=== PATIENT | female | born 1955 | race Caucasian/White ===

== ENCOUNTER 2017-12-22 16:41 | Inpatient (IN) | payer BC, OTHER ==
[~2017-12-22] VITALS: Ht 162.6 cm; Wt 64.5 kg
[2017-12-22 17:45] VITALS: BP 115/66
[2017-12-22] MEDS ORDERED: PLEASE ENTER HEIGHT AND WEIGHT MC SCH (19:30)
[2017-12-22] MEDS ORDERED: TEMAZEPAM 15 MG CAPSULE PO PRN (19:30)
[2017-12-22] MEDS ORDERED: PLEASE ENTER ALLERGIES MC SCH (19:30)
[2017-12-22] MEDS ORDERED: ONDANSETRON 2MG/ML, 2ML IVPush PRN (19:30)
[2017-12-22] MEDS ORDERED: ENALAPRILAT 1.25 MG/ML, 2ML IVPush PRN (19:30)
[2017-12-22] MEDS ORDERED: DOCUSATE 100 MG CAPSULE PO PRN (19:30)
[2017-12-22] MEDS ORDERED: ZOLM5TAB8 PO (20:28)
[2017-12-22 20:37] VITALS: BP 114/73
[2017-12-22] MEDS: DEXAMETHASONE 4 MG/ML, 1ML IVPush SCH (22:35)
[2017-12-23 00:58] VITALS: BP 116/71
[2017-12-23] MEDS: DEXAMETHASONE 4 MG/ML, 1ML IVPush SCH ×4 (04:35→22:18)
[2017-12-23 07:16] VITALS: BP 108/69
[2017-12-23] MEDS: HYDROcodone/APAP 5/325 TABLET PO PRN ×3 (07:38→20:23)
[2017-12-23 08:16] LABS: ANION GAP 11 mmol/L (5-15); CALCIUM 8.5 mg/dL (8.5-10.1); CHLORIDE 104 mmol/L (98-107); CREATININE 0.69 mg/dL (0.55-1.02)
[2017-12-23 08:18] LABS: MEAN CORPUSCULAR HGB CONC 33.8 g/dL (32.4-35.8); MEAN PLATELET VOLUME 7.2 fL (7.4-10.4); PLATELET COUNT 502 x10^3/uL (130-400); RED BLOOD COUNT 4.39 x10^6/uL (3.82-5.3); RED CELL DISTRIBUTION WIDTH 17.9 % (9.6-15.2)
[2017-12-23 09:01] LABS: MD YES
[2017-12-23 09:04] LABS: BAND#(MANUAL) 0.14 x10^3/uL; BANDS%(MANUAL) 1 % (0-7); LYMPH#(MANUAL) 3.08 x10^3/uL (1-3.4); LYMPHS% (MANUAL) 22 % (22-44); METAMYELOCYTES# (MANUAL) 0.14 x10^3/uL (0-0); METAMYELOCYTES% (MANUAL) 1 % (0-1); MONOS#(MANUAL) 0.28 x10^3/uL (0.3-2.7); MONOS% (MANUAL) 2 % (2-9); SEG#(MANUAL) 10.36 x10^3/uL (1.8-6.8); SEGS% (MANUAL) 74 % (42-75)
[2017-12-23 09:05] LABS: <PLATELET ESTIMATE> INCREASED; ANISOCYTOSIS 1+; LARGE PLATELETS 1+; POLYCHROMASIA 1+
[2017-12-23] MEDS ORDERED: GADOBUTROL 7.5 MMOL/7.5 ML PFS ONE ×2 (12:32→17:39)
[2017-12-23 13:44] VITALS: BP 107/70
[2017-12-23 20:37] VITALS: BP 111/67
[2017-12-24 01:01] VITALS: BP 119/72
[2017-12-24] MEDS: DEXAMETHASONE 4 MG/ML, 1ML IVPush SCH ×4 (04:20→22:19)
[2017-12-24 07:21] VITALS: BP 127/66
[2017-12-24] MEDS: HYDROcodone/APAP 5/325 TABLET PO PRN ×3 (08:58→20:26)
[2017-12-24 13:52] VITALS: BP 110/70
[2017-12-24 20:00] VITALS: BP 111/72
[2017-12-25 02:00] VITALS: BP 104/64
[2017-12-25] MEDS: DEXAMETHASONE 4 MG/ML, 1ML IVPush SCH ×4 (04:49→22:43)
[2017-12-25] MEDS: HYDROcodone/APAP 5/325 TABLET PO PRN ×4 (04:49→21:29)
[2017-12-25 09:10] VITALS: BP 107/67
[2017-12-25 13:55] VITALS: BP 98/62
[2017-12-25] MEDS ORDERED: CEFDINIR 125 MG/5 ML, ORAL SUSP ONE (18:00)
[2017-12-25 19:19] VITALS: BP 113/73
[2017-12-26 01:48] VITALS: BP 106/66
[2017-12-26] MEDS: DEXAMETHASONE 4 MG/ML, 1ML IVPush SCH ×4 (04:40→22:32)
[2017-12-26] MEDS ORDERED: NALOXONE 1 MG/ML, 2ML ONE (07:42)
[2017-12-26] MEDS ORDERED: FENTANYL PF 100 MCG/2ML ONE ×2 (07:42)
[2017-12-26] MEDS ORDERED: FLUMAZENIL 0.1 MG/1 ML, 5ML ONE (07:42)
[2017-12-26] MEDS ORDERED: MIDAZOLAM 1 MG/ML, 2ML ONE ×2 (07:42)
[2017-12-26] MEDS ORDERED: CEFAZOLIN PMX 1GM/50ML 50 ML ONE (08:02)
[2017-12-26] MEDS ORDERED: LIDOCAINE 1%, 20ML ONE (08:06)
[2017-12-26 08:16] VITALS: BP 119/73
[2017-12-26 13:50] VITALS: BP 102/67
[2017-12-26] MEDS: HYDROcodone/APAP 5/325 TABLET PO PRN ×3 (14:57→23:29)
[2017-12-26 19:26] VITALS: BP 98/64
[2017-12-27 03:00] VITALS: BP 108/72
[2017-12-27] MEDS: HYDROcodone/APAP 5/325 TABLET PO PRN ×4 (04:37→20:20)
[2017-12-27] MEDS: DEXAMETHASONE 4 MG/ML, 1ML IVPush SCH ×4 (04:37→22:36)
[2017-12-27 08:20] VITALS: BP 117/73
[2017-12-27 14:52] VITALS: BP 108/63
[2017-12-27 20:00] VITALS: BP 107/61
[2017-12-28] MEDS: HYDROcodone/APAP 5/325 TABLET PO PRN ×6 (00:40→22:13)
[2017-12-28 04:16] VITALS: BP 111/68
[2017-12-28] MEDS: DEXAMETHASONE 4 MG/ML, 1ML IVPush SCH ×4 (04:44→22:13)
[2017-12-28 08:09] VITALS: BP 110/61
[2017-12-28 16:45] VITALS: BP 111/66
[2017-12-28 19:49] VITALS: BP 100/59
[2017-12-29 02:11] VITALS: BP 108/70
[2017-12-29] MEDS: DEXAMETHASONE 4 MG/ML, 1ML IVPush SCH ×4 (05:39→22:29)
[2017-12-29] MEDS: HYDROcodone/APAP 5/325 TABLET PO PRN ×4 (05:39→22:33)
[2017-12-29 07:15] LABS: ALANINE AMINOTRANSFERASE 27 U/L (12-78); ALBUMIN 2.2 g/dL (3.4-5.0); ANION GAP 8 mmol/L (5-15); CALCIUM 8.1 mg/dL (8.5-10.1); CHLORIDE 102 mmol/L (98-107); CREATININE 0.55 mg/dL (0.55-1.02)
[2017-12-29 07:17] LABS: ALKALINE PHOSPHATASE 402 U/L (45-117); BILIRUBIN,TOTAL 0.5 mg/dL (0.2-1.0); TOTAL PROTEIN 5.8 g/dL (6.4-8.2)
[2017-12-29 07:35] LABS: MD YES; MEAN CORPUSCULAR HEMOGLOBIN 26.9 pg (27.0-34.8); MEAN CORPUSCULAR HGB CONC 33.5 g/dL (32.4-35.8); MEAN CORPUSCULAR VOLUME 80.2 fL (80-100); MEAN PLATELET VOLUME 7.2 fL (7.4-10.4); PLATELET COUNT 458 x10^3/uL (130-400); RED BLOOD COUNT 4.18 x10^6/uL (3.82-5.3)
[2017-12-29 07:36] LABS: BAND#(MANUAL) 0.29 x10^3/uL; BANDS%(MANUAL) 2 % (0-7); LYMPH#(MANUAL) 0.88 x10^3/uL (1-3.4); LYMPHS% (MANUAL) 6 % (22-44); METAMYELOCYTES# (MANUAL) 0.15 x10^3/uL (0-0); METAMYELOCYTES% (MANUAL) 1 % (0-1); MONOS#(MANUAL) 0.58 x10^3/uL (0.3-2.7); MONOS% (MANUAL) 4 % (2-9); NRBC % (MANUAL) 2 % (0-1); SEGS% (MANUAL) 87 % (42-75)
[2017-12-29 07:37] LABS: ANISOCYTOSIS 1+; POLYCHROMASIA 1+
[2017-12-29 07:38] LABS: <PLATELET ESTIMATE> INCREASED; <PLT MORPHOLOGY> NORMAL PLT MORPH; HOWELL-JOLLY BODIES 1+
[2017-12-29 08:30] VITALS: BP 101/64
[2017-12-29 14:00] VITALS: BP 104/59
[2017-12-29 17:40] LABS: GLUCOSE, CSF 78 mg/dL (40-80)
[2017-12-29 17:50] LABS: TOTAL PROTEIN,CSF 794 mg/dL (15-45)
[2017-12-29 18:33] VITALS: BP 98/60
[2017-12-30 03:58] VITALS: BP 107/68
[2017-12-30] MEDS: DEXAMETHASONE 4 MG/ML, 1ML IVPush SCH ×4 (04:30→22:23)
[2017-12-30] MEDS: HYDROcodone/APAP 5/325 TABLET PO PRN ×4 (04:35→22:23)
[2017-12-30 08:30] VITALS: BP 106/70
[2017-12-30 14:30] VITALS: BP 102/66
[2017-12-30 19:46] VITALS: BP 97/64
[2017-12-31] MEDS: DEXAMETHASONE 4 MG/ML, 1ML IVPush SCH ×4 (04:29→22:27)
[2017-12-31] MEDS: HYDROcodone/APAP 5/325 TABLET PO PRN ×4 (04:34→22:31)
[2017-12-31 05:18] VITALS: BP_SYST 85; BP_SYST 89; BP_SYST 93; BP_DIAS 54; BP_DIAS 56; BP_DIAS 59
[2017-12-31 08:30] VITALS: BP 116/69
[2017-12-31 14:21] VITALS: BP 108/69
[2017-12-31 19:19] VITALS: BP 99/62
[2018-01-01 03:34] VITALS: BP 99/63
[2018-01-01] MEDS: DEXAMETHASONE 4 MG/ML, 1ML IVPush SCH ×4 (04:27→22:11)
[2018-01-01 07:05] VITALS: BP 109/69
[2018-01-01] MEDS: HYDROcodone/APAP 5/325 TABLET PO PRN ×3 (10:02→22:39)
[2018-01-01 13:08] VITALS: BP 101/64
[2018-01-01 20:21] VITALS: BP 104/65
[2018-01-02 03:48] VITALS: BP 99/62
[2018-01-02] MEDS: HYDROcodone/APAP 5/325 TABLET PO PRN ×3 (04:07→13:53)
[2018-01-02] MEDS: DEXAMETHASONE 4 MG/ML, 1ML IVPush SCH ×2 (04:07→10:00)
[2018-01-02 07:30] VITALS: BP 120/75
[2018-01-02 14:08] VITALS: BP 100/63
[2018-01-02] MEDS ORDERED: HYDR-3240 PO (16:28)
[2018-01-02] MEDS ORDERED: DEXA4TAB PO (16:28)
== END 2018-01-02 18:57 | disposition home or self-care (01) | DRG 579 ==
LOC: 3NW 17:40
PROVIDERS: ADMIT Internal Medicine; ATTEND Internal Medicine
PROC: 0JH63WZ Insertion of Totally Implantable Vascular Access Device into Chest Subcutaneous Tissue and Fascia, Percutaneous Approach (ICD-10-PCS; 2017-12-26)
PROC: 0QB23ZX Excision of Right Pelvic Bone, Percutaneous Approach, Diagnostic (ICD-10-PCS; 2017-12-26)
PROC: 05HM33Z Insertion of Infusion Device into Right Internal Jugular Vein, Percutaneous Approach (ICD-10-PCS; 2017-12-26)
PROC: B5131ZA Fluoroscopy of Right Jugular Veins using Low Osmolar Contrast, Guidance (ICD-10-PCS; 2017-12-26)
PROC: D00 Radiation Therapy, Central and Peripheral Nervous System, Beam Radiation (ICD-10-PCS; 2017-12-27)
PROC: 009U3ZX Drainage of Spinal Canal, Percutaneous Approach, Diagnostic (ICD-10-PCS; principal; 2017-12-29)
PROC: B01B1ZZ Fluoroscopy of Spinal Cord using Low Osmolar Contrast (ICD-10-PCS; 2017-12-29)
PROC: D0062ZZ Beam Radiation of Spinal Cord using Photons >10 MeV (ICD-10-PCS; 2017-12-30)
PROC: D0062ZZ Beam Radiation of Spinal Cord using Photons >10 MeV (ICD-10-PCS; 2017-12-30)
PROC: D00 Radiation Therapy, Central and Peripheral Nervous System, Beam Radiation (ICD-10-PCS; 2018-01-02)
PROC: D0062ZZ Beam Radiation of Spinal Cord using Photons >10 MeV (ICD-10-PCS; 2018-01-02)
DX: C50.919 Malignant neoplasm of unspecified site of unspecified female breast (principal); E43 Unspecified severe protein-calorie malnutrition; G93.6 Cerebral edema; I61.9 Nontraumatic intracerebral hemorrhage, unspecified; J10.00 Influenza due to other identified influenza virus with unspecified type of pneumonia; C78.00 Secondary malignant neoplasm of unspecified lung; C79.31 Secondary malignant neoplasm of brain; C79.51 Secondary malignant neoplasm of bone; E86.0 Dehydration; G89.3 Neoplasm related pain (acute) (chronic); H50.012 Monocular esotropia, left eye; H53.2 Diplopia; H91.90 Unspecified hearing loss, unspecified ear; Z17.0 Estrogen receptor positive status [ER+]; Z79.810 Long term (current) use of selective estrogen receptor modulators (SERMs); Z82.0 Family history of epilepsy and other diseases of the nervous system; Z79.811 Long term (current) use of aromatase inhibitors; Z82.49 Family history of ischemic heart disease and other diseases of the circulatory system; Z90.13 Acquired absence of bilateral breasts and nipples; Z92.21 Personal history of antineoplastic chemotherapy; Z90.81 Acquired absence of spleen; Z91.19 Patient's noncompliance with other medical treatment and regimen; Z85.3 Personal history of malignant neoplasm of breast; Z68.24 Body mass index [BMI] 24.0-24.9, adult
CPT/HCPCS: 20225; 36415; 36561; 36590; 62270; 70553; 72156; 72157; 72158; 74177; 76937; 77001; 77012; 77280; 77290; 77295; 77300; 77334; 77387; 77412; 80048; 80053; 82945; 83735; 84157; 85025; 88307; 88311; 88341; 88342; 88360; 89051; 99156; 99157; A9585; J0690; J1100; J2250; J3010; J3490; C1788; G0461; J1642; J2310

== ENCOUNTER → 2018-01-24 | Outpatient (CLI) | payer BC ==
[~2018-01-24] MED LIST: DEXA4TAB PO; HYDR-3240 PO; ZOLM5TAB8 PO
== END | disposition home or self-care (01) ==
LOC: ROC 09:54
PROVIDERS: ATTEND Radiology Radiation Oncology
DX: C71.9 Malignant neoplasm of brain, unspecified (principal)
CPT/HCPCS: 99213; G0463